=== PATIENT | female | born 1985 | race Two or more races ===

== ENCOUNTER 2023-02-25 07:29 | Emergency (ER) | payer OTHER ==
[2023-02-25 08:18] VITALS: BP 105/70; PULSE 68; RESP 18; TEMP 98; BMI 26.6
[2023-02-25] MEDS ORDERED: ACETAMINOPHEN 500 MG TABLET (FP) PO ONE (08:45)
[2023-02-25] MEDS ORDERED: ACETAMINOPHEN 500 MG TABLET (FP) ONE (09:08)
[2023-02-25 09:18] LABS: BASO % 0.7 % (0-2.0); LYMPH % 32.6 % (8-40); MCH 30.7 pg (25.7-33.7); MCHC 34.1 g/dl (32.0-36.0); MEAN PLT VOLUME 7.4 fl (7.5-11.1); MONO % 7.1 % (3.8-10.2); NEUT % 58.6 % (42.8-82.8); PLATELET COUNT 243 10^3/uL (134-434); RBC 4.23 M/mm3 (3.60-5.2); RDW 13.7 % (11.6-15.6); WHITE BLOOD COUNT 4.8 K/mm3 (4.0-10.0)
[2023-02-25 09:22] LABS: PH,URINE 5.5 (5.0-8.0); URINE APPEARANCE CLEAR; URINE BILIRUBIN NEGATIVE (NEGATIVE); URINE COLOR YELLOW; URINE GLUCOSE (UA) NEGATIVE (NEGATIVE); URINE KETONE NEGATIVE (NEGATIVE); URINE LEUK ESTERASE NEGATIVE (NEGATIVE); URINE NITRITE NEGATIVE (NEGATIVE); URINE PROTEIN NEGATIVE (NEGATIVE); URINE UROBILINOGEN 0.2 mg/dL (0.2-1.0)
[2023-02-25 09:26] LABS: HCG,QUALITATIVE URINE Negative
[2023-02-25 10:00] LABS: POTASSIUM 4.2 mmol/L (3.5-5.1)
[2023-02-25 10:02] LABS: CALCIUM 8.5 mg/dL (8.5-10.1)
[2023-02-25 10:03] LABS: ALBUMIN 3.9 g/dl (3.4-5.0); BLOOD UREA NITROGEN 11.8 mg/dL (7-18)
[2023-02-25 10:06] LABS: CREATININE 0.7 mg/dL (0.55-1.3)
[2023-02-25 10:08] LABS: BILIRUBIN,TOTAL 0.3 mg/dL (0.2-1); TOT PROT 7.3 g/dl (6.4-8.2)
== END 2023-02-25 10:35 | disposition home or self-care (01) ==
LOC: JERFT 07:29 → JER 07:29 → JERFT 10:35
DX: R51.9 Headache, unspecified (principal); R09.81 Nasal congestion; R42 Dizziness and giddiness; M54.2 Cervicalgia; J32.9 Chronic sinusitis, unspecified; Z20.822 Contact with and (suspected) exposure to COVID-19
CPT/HCPCS: 0241U-QW; 36415; 80053; 81003; 84443; 84703; 85025; 99283-25